=== PATIENT | male | born 1985 ===

== ENCOUNTER 2017-10-07 21:20 | Emergency (ER) | payer OTHER ==
[2017-10-07 21:40] VITALS: BP 152/93; PULSE 97; RESP 16; TEMP 98.7; O2SAT 100
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
== END 2017-10-08 00:09 | disposition home or self-care (01) ==
LOC: H.ER 21:20
DX: M62.830 Muscle spasm of back (principal); V49.40XA Driver injured in collision with unspecified motor vehicles in traffic accident, initial encounter